=== PATIENT | female | born 1945 | race Caucasian/White ===

== ENCOUNTER 2016-12-31 21:52 | Inpatient (IN) | payer OTHER ==
[~2016-12-31] VITALS: Ht 165.1 cm; Wt 104.0 kg
[~2016-12-31 21:52] MED LIST: ASPI-231 PO; ATEN-60 PO; DULO60CA PO; LISI40TA PO; METF-370 PO; SIMV-8 PO; WARF5TAB71 PO
[2016-12-31] MEDS ORDERED: PANTOPRAZOLE 80 MG in SODIUM CHL 0.9% 60 ML IV ONE (22:15)
[2016-12-31] MEDS ORDERED: PANTOPRAZOLE 40 MG/10 ML VIAL IV ONE (22:15)
[2016-12-31] MEDS ORDERED: SODIUM CHLORIDE 0.9% 1,000 ML IV ONE (22:15)
[2016-12-31] MEDS ORDERED: SODIUM BICARBONATE 8.4% INJ 50ML SYRINGE ONE (22:28)
[2016-12-31 22:31] LABS: CONDITION Y; DEFINITIVE SEE PRINTOUT; Hematocrit 10.8 % (36.0-46.0); Mean Corpuscular Hemoglobin 35.5 pg (28.0-32.0); Mean Corpuscular Hgb Conc. 32.2 g/dL (32.0-36.0); Mean Corpuscular Volume 110.5 fL (80.0-100.0); Mean Platelet Volume 9.3 fL (7.4-10.4); Platelet Count (auto) 124 10^3/uL (140-450); SUSPECT SEE PRINTOUT; White Blood Cell 3.7 10^3/uL (4.4-10.8)
[2016-12-31 22:36] LABS: Red Cell Distribution Width 21.9 % (11.6-16.0)
[2016-12-31 22:38] LABS: Hemoglobin 3.5 g/dL (12.2-16.2); Metamyelocytes % 0; Myelocytes % 0; Promyelocytes % 0; Reactive Lymphocytes 0
[2016-12-31 22:43] LABS: INR 3.36 (0.9-1.15); Partial Thromboplastin Time 31.5 sec (22.64-33.71); Prothrombin Time 37.1 sec (9.37-12.3)
[2016-12-31 22:45] LABS: Albumin 2.4 g/dL (3.4-5.0); BUN/Creatinine Ratio 17.9; Magnesium 2.4 mg/dL (1.6-2.6); Potassium 4.5 mmol/L (3.5-5.1)
[2016-12-31] MEDS ORDERED: SODIUM BICARBONATE 8.4 % INJ 50ML VIAL IV ONE (22:45)
[2016-12-31 22:50] LABS: Bilirubin, Total 0.6 mg/dL (0.2-1.0); Lactic Acid w/Reflex 9.8 mmol/L (0.4-2.0); Total Protein 4.4 g/dL (6.4-8.2)
[2016-12-31 22:52] LABS: REFLEX LACTIC ACID YES OR NO YES
[2016-12-31 22:56] LABS: Anisocytosis Moderate; Platelet Estimate Decreased
[2016-12-31 22:58] LABS: Macrocytosis Moderate; Ovalocytes FEW; Polychromasia Slight; Tear Drop Cells FEW
[2016-12-31 23:21] LABS: Allen Test Yes; Base Excess -9.1 mmol/L (-2.0-2.0); Blood 02Sat 97.4 % (96-100); Blood COHb 0.3 % (0.5-1.5); Blood MetHb 0.6 % (0.0-1.5); HHb 2.6 % (0.0-5.0); MODE NASAL CANNULA; O2Hb 96.5 % (94.0-97.0); PCO2 25.7 mmHg (35.0-45.0); PCO2(T) 25.1 mmHg (35.0-45.0); PO2 150.6 mmHg (80.0-100.0); PO2(T) 147.7 mmHg (80.0-100.0); Sample Type Arterial; pH 7.384 (7.350-7.450)
[2016-12-31 23:35] VITALS: BP 151/60
[2016-12-31 23:46] VITALS: BP 157/70
[2016-12-31 23:50] VITALS: BP 160/170
[2017-01-01] VITALS (16 sets, daily range): BP systolic 101–163; BP diastolic 42–88
[2017-01-01] MEDS ORDERED: MORPHINE SULF INJ 2 MG/ML SYRINGE 1ML IV PRN ×2 (01:15)
[2017-01-01] MEDS: PANTOPRAZOLE 80 MG in SODIUM CHL 0.9% 60 ML IV SCH ×3 (01:15→17:13)
[2017-01-01] MEDS ORDERED: ACETAMINOPHEN 325 MG TAB PO PRN (01:15)
[2017-01-01] MEDS ORDERED: DEXTROSE (50%) 50ML SYRG IV PRN (01:15)
[2017-01-01] MEDS ORDERED: NITROGLYCERIN 0.4 MG SL TAB SL PRN (01:15)
[2017-01-01] MEDS ORDERED: HYDROcodone-ACET 5/325MG TAB PO PRN (01:15)
[2017-01-01] MEDS: SODIUM CHLORIDE 0.9% 1,000 ML IV SCH ×2 (01:43→17:13)
[2017-01-01 03:22] LABS: Hematocrit 32.9 % (36.0-46.0)
[2017-01-01] MEDS: ONDANSETRON HCL 4 MG/2 ML VIAL IV PRN ×2 (04:57→05:03)
[2017-01-01] MEDS: InsuLIN REG 1unit/0.01ml Soln (100units/ml) SC SCH ×2 (06:00→11:47)
[2017-01-01] MEDS: ACCU-CHEK COMFORT CURVE STRIP VI SCH ×2 (06:00→11:47)
[2017-01-01] MEDS ORDERED: FUROSEMIDE 20 MG/2 ML VIAL IV ONE (08:30)
[2017-01-01] MEDS ORDERED: hydrALAZINE HCL 20 MG/ML VL IV PRN (08:30)
[2017-01-01 09:08] LABS: INR 1.86 (0.9-1.15); Partial Thromboplastin Time 30.5 sec (22.64-33.71); Prothrombin Time 20.4 sec (9.37-12.3)
[2017-01-01 09:09] LABS: CONDITION Y; Hematocrit 28.7 % (36.0-46.0); Hemoglobin 9.8 g/dL (12.2-16.2); Mean Corpuscular Hemoglobin 32.4 pg (28.0-32.0); Mean Corpuscular Hgb Conc. 34.1 g/dL (32.0-36.0); Mean Platelet Volume 9.4 fL (7.4-10.4); Platelet Count (auto) 89 10^3/uL (140-450); Red Cell Distribution Width 16.3 % (11.6-16.0); White Blood Cell 3.7 10^3/uL (4.4-10.8)
[2017-01-01 09:16] LABS: Metamyelocytes % 0; Myelocytes % 0; Promyelocytes % 0; Reactive Lymphocytes 0
[2017-01-01 09:21] LABS: Albumin 2.7 g/dL (3.4-5.0); BUN/Creatinine Ratio 21.5; Bilirubin, Total 0.9 mg/dL (0.2-1.0); Magnesium 2.5 mg/dL (1.6-2.6); Potassium 3.9 mmol/L (3.5-5.1)
[2017-01-01 09:48] LABS: Anisocytosis Slight; Large Platelets FEW; Platelet Estimate Decreased; Polychromasia Slight
[2017-01-01] MEDS ORDERED: ATENOLOL 25 MG TAB PO SCH (10:00)
[2017-01-01] MEDS ORDERED: LISINOPRIL 20 MG TAB PO SCH (10:00)
[2017-01-01] MEDS ORDERED: SUNI25CA PO (10:48)
[2017-01-01] MEDS ORDERED: ESOM20CA PO (10:48)
[2017-01-01] MEDS ORDERED: SIMV-13 PO (10:48)
[2017-01-01] MEDS ORDERED: FERR325T PO (10:48)
[2017-01-01] MEDS ORDERED: WARF5TAB71 PO (10:48)
[2017-01-01] MEDS ORDERED: DULO60CA PO (10:48)
[2017-01-01] MEDS ORDERED: AMLO5TAB2 PO (11:50)
[2017-01-01] MEDS ORDERED: ATEN-60 PO (11:50)
[2017-01-01 12:22] LABS: Hemoglobin 10.2 g/dL (12.2-16.2)
[2017-01-01 12:56] LABS: Urine Bilirubin Negative (Negative); Urine Blood Negative /uL (Negative); Urine Color Yellow (Yellow); Urine Glucose Normal (Normal); Urine Ketone Negative (Negative); Urine Nitrite Negative (Negative); Urine RBC <1 /hpf (0 - 4); Urine Urobilinogen Normal (Negative)
[2017-01-01 15:23] LABS: Hematocrit 29.9 % (36.0-46.0); Hemoglobin 10.1 g/dL (12.2-16.2)
== END 2017-01-01 17:40 | disposition short-term general hospital (02) | DRG 377 ==
LOC: EDBD 21:52 → ER 21:57 → TELE 21:58 → DOU IN ICU 01-01 02:19
PROVIDERS: ADMIT Nurse Practitioner; ATTEND Family Medicine
PROC: 30233N1 Transfusion of Nonautologous Red Blood Cells into Peripheral Vein, Percutaneous Approach (ICD-10-PCS; principal; 2016-12-31)
PROC: 30233L1 Transfusion of Nonautologous Fresh Plasma into Peripheral Vein, Percutaneous Approach (ICD-10-PCS; 2017-01-01)
PROC: 30233K1 Transfusion of Nonautologous Frozen Plasma into Peripheral Vein, Percutaneous Approach (ICD-10-PCS; 2017-01-01)
DX: K92.2 Gastrointestinal hemorrhage, unspecified (principal); E43 Unspecified severe protein-calorie malnutrition; N17.0 Acute kidney failure with tubular necrosis; E87.2 Acidosis; D69.6 Thrombocytopenia, unspecified; E11.22 Type 2 diabetes mellitus with diabetic chronic kidney disease; I13.0 Hypertensive heart and chronic kidney disease with heart failure and stage 1 through stage 4 chronic kidney disease, or unspecified chronic kidney disease; I50.9 Heart failure, unspecified; D62 Acute posthemorrhagic anemia; E86.0 Dehydration; E78.5 Hyperlipidemia, unspecified; I25.10 Atherosclerotic heart disease of native coronary artery without angina pectoris; N18.9 Chronic kidney disease, unspecified; Z79.01 Long term (current) use of anticoagulants; Z85.528 Personal history of other malignant neoplasm of kidney; Z90.5 Acquired absence of kidney; Z90.710 Acquired absence of both cervix and uterus; Z95.1 Presence of aortocoronary bypass graft; Z95.2 Presence of prosthetic heart valve; Z68.38 Body mass index [BMI] 38.0-38.9, adult; Z88.0 Allergy status to penicillin; Z79.82 Long term (current) use of aspirin; Z79.899 Other long term (current) drug therapy; Z90.49 Acquired absence of other specified parts of digestive tract; Z85.118 Personal history of other malignant neoplasm of bronchus and lung
CPT/HCPCS: 36415; 36430; 36600; 70450; 71010; 74176; 80053; 81001; 82306; 82570; 82805; 82962; 83605; 83735; 83970; 84100; 84156; 84300; 84484; 85007; 85014; 85018; 85027; 85610; 85730; 86850; 86900; 86901; 86920; 87040; 87081; 93005; 94761; 96365; 96375; C9113; J2405